=== PATIENT | male | born 1985 | race Caucasian/White ===

== ENCOUNTER 2024-11-23 03:49 | Emergency (ER) | payer BC, SELFPAY ==
[2024-11-23 03:50] VITALS: BMI 30.7
[2024-11-23 03:53] VITALS: BP 126/77
[2024-11-23 03:54] VITALS: BP 126/77
[2024-11-23 04:00] VITALS: BP 126/77
[2024-11-23 04:17] LABS: % Basophils 0.4 % (0-2); % Eosinophils 3.5 % (0-6); % Immature Granulocytes 0.4 % (0-0.5); % Monocytes 5.9 % (1.7-9.3); % Neutrophils 62.8 % (42.2-75.2); Absolute Eosinophils 0.2 10^3/uL (0-0.7); Absolute Lymphocytes 1.2 10^3/uL (1.2-3.4); Absolute Monocytes 0.3 10^3/uL (0.1-0.6); Absolute Neutrophils 2.9 10^3/uL (1.4-6.5); Hemoglobin 14.7 g/dL (13.0-18.0); Mean Corpuscular Hgb 29.2 pg (27.0-31.0); Mean Corpuscular Volume 83.5 fL (80.0-94.0); Mean Platelet Volume 9.6 fL (7.4-10.4); Nucleated Red Blood Cells % 0 % (-); Platelet Count 165 10^3/uL (130-400); Red Blood Cell Count 5.03 10^6/uL (4.70-6.10); Red Cell Dist. Width 12.4 % (11.5-14.5); White Blood Cell Count 4.6 10^3/uL (4.8-10.8)
[2024-11-23 04:41] LABS: ALT (SGPT) 31 U/L (0-50); AST (SGOT) 26 U/L (17-59); Albumin 4.4 g/dl (3.5-5.0); Alkaline Phosphatase 68 U/L (38-126); Blood Urea Nitrogen 22 mg/dl (9-20); Calcium 8.8 mg/dl (8.4-10.2); Carbon Dioxide 27 mmol/L (22-30); Chloride 109 mmol/L (98-107); Estimated Creatinine Clearance 117 ml/min; Glucose 182 mg/dl (70-99); Potassium 3.9 mmol/L (3.5-5.1); Sodium 142 mmol/L (135-145); Total Bilirubin 0.5 mg/dl (0.2-1.3); Total Protein 7.3 g/dl (6.3-8.2); eGFR > 60.00
[2024-11-23 04:51] LABS: Troponin I < 0.012 ng/ml
[2024-11-23 05:00] VITALS: BP 129/81
--- NOTE | 2024-11-23 05:08 | ED.GENMED ---
History of Present Illness
General
Chief Complaint: Dizziness
Source: patient
Exam Limitations: none
Time Seen by Provider: 11/23/24 04:58
Nursing documentation reviewed up to this point in time: agreed with
History of Present Illness
History of Present Illness:
Note:
CHIEF COMPLAINT(S)
Chest burning and dizziness.
HISTORY OF PRESENT ILLNESS
The patient is a 39-year-old male who presents with chest burning over the past one to two weeks. The burning sensation in the chest is intermittent and seems to occur following meals. The patient describes these symptoms as similar to indigestion.
Dlwv-fft-fooncob antacids like Tums and Pepcid have provided slight relief. Tonight, the patient experienced a new sensation described as numbness and dizziness, which woke him from sleep. The dizziness was associated with a feeling of the heart
racing and some shortness of breath. The numbness involved both sides of is bilateral upper and lower extremeties and has been improving. He reports no history of vomiting but sometimes experiences upper abdominal discomfort.
No personal history of heart disease, but there is a family history of heart disease; his grandfather underwent a quadruple bypass surgery in his mid-late 50s. The patient denies any long-distance travel, smoking, or leg swelling. His dizziness
appears to have a positional component. He has never had anything like this before. He denies headache, neck pain, double vision, difficulty ambulating.
PHYSICAL EXAM
General: Patient is well appearing and in no acute distress; non-toxic
Skin: Warm and dry, no rashes or lesions
Head: Normocephalic, atraumatic
Eyes: Sclera non-icteric. EOMs intact.
Cardiac: Regular rate and rhythm, no murmurs
Peripheral Vascular: No lower extremity swelling or edema
Pulm: Normal respiratory effort, no wheezes, rales, or rhonchi
Abdomen: No abdominal tenderness to palpation
Musculoskeletal: No tenderness to palpation of the external chest wall
Neuro: CN II-XII intact, no focal neurologic deficits. Normal gait. Normal finger to nose, heel to hall testing.
Psychiatric: Appropriate mood and affect.
PLAN
- Perform a chest X-ray to rule out other causes of chest pain.
- Conduct a D-dimer blood test to evaluate for pulmonary embolism.
- Consider a CT scan of the head with new onset dizziness
- Administer a gastrointestinal cocktail to evaluate response and consider prescribing omeprazole or pantoprazole if symptoms improve, which may indicate GERD.
DIFFERENTIAL DIAGNOSIS
The Differential Diagnosis includes, in no particular order and is not limited to:
1. Gastroesophageal reflux disease (GERD)
2. Non-cardiac chest pain
3. Anxiety or panic attack
4. Musculoskeletal pain
5. Costochondritis
6. Angina pectoris
7. Pulmonary embolism
8. Peptic ulcer disease
9. Atypical myocardial infarction
10. Esophageal spasm
CHART REVIEW
- no prior ER physician documentation or discharge summaries in [facility] to review
MDM/DISPOSITION
Chest burning/pain: 39 y/o male presents to the ER today with concerns of chest burning for 1-2 weeks. His ECG shows normal sinus rhythm and his troponin is undetectable, d dimer normal, CXR unremarkable. Suspect GERD considering pain worse with
meals, burning quality, improvement with GI cocktail. Prescription for PPI given. PCP follow up. Discussed follow up with cards as well considering family hx.
Dizziness: This symptom is what prompted patient to call EMS. He woke up and started to feel dizzy. Worse with standing. Started to feel paresthesias in his b/l upper and lower extremities. These symptoms have since resolved and currently he is
asymptomatic. His CT of the head is normal. His neurologic exam is nonfocal. Highly doubt CVA/TIA. Doubt cardiac etiology. Did not have chest pain or palpitations during this episode. Suspect BPPV vs anxiety. Stable for outpatient follow up.
Review of Systems
Review of Systems
All Other Systems: ROS reviewed and negative except as documented in HPI and ROS
Phy Exam
Physical Exam
Physical Exam:
see HPI
PATIENT NOT HYPOXIC
100% on RA
Course
Orders/Labs/Results
Orders:
Orders
11/23/24 03:58
Electrocardiogram (*1) Urgent
Reason for Study: Chest Pain
Cardiac Monitoring- Treatment ONCE
EKG- Treatment ONCE
IV Insert/Care/Rem.- Treatment PRN
O2 Therapy [RESP] Urgent
Titrate/Wean O2 to maintain O2 sat greater than (%): 90
Special Instructions: Maintain sats >/=90%
Pulse Ox/spot Check [RESP] Urgent
Quantity: 1
Special Instructions: ON ROOM AIR
11/23/24 04:00
Complete Blood Count/With Diff Urgent
Comprehensive Metabolic Panel Urgent
Troponin I Urgent
11/23/24 05:08
CT Head W/o Iv Contrast Urgent
Comment:
Reason For Exam: dizziness
Mag Hydrox/Al Hydrox/Simeth [Maalox] 30 ml Phenobarb/Hyoscy/Atropine/Scop [] 10 ml PO NOW
CR Chest - 2 Views Urgent
Comment:
Reason For Exam: shortness of breath, chest pain
11/23/24 05:38
D-Dimer Urgent
11/23/24 05:51
Phenobarb/Hyoscy/Atropine/Scop [] 10 ml .ROUTE .STK-MED ONE
11/23/24 05:52
Mag Hydrox/Al Hydrox/Simeth [Maalox] 30 ml .ROUTE .STK-MED ONE
Abnormal Lab Results
11/23/24
04:00
WBC 4.6 L 10^3/uL
(4.8-10.8)
Chloride 109 H mmol/L
(98-107)
BUN 22 H mg/dl
(9-20)
Glucose 182 H mg/dl
(70-99)
11/23/24 04:00
11/23/24 04:00
Vital Signs
Initial and Last Documented VS:
Initial Vital Signs
Pulse Resp BP Pulse Ox
101 18 126/77 97
11/23/24 03:53 11/23/24 03:53 11/23/24 03:53 11/23/24 03:53
Last Documented Vital Signs
Pulse Resp BP Pulse Ox
91 16 121/79 98
11/23/24 07:30 11/23/24 07:30 11/23/24 07:30 11/23/24 07:30
*Critical Care Note
Total Time (30-74mins, 75-104mins- exclusive of procedures): Not Applicable
ED Attending Note
-
Portions of this chart may have been created with voice recognition software.� Occasional wrong word or��sound alike� substitutions may have occurred due to the inherent limitations of voice recognition software.
Discharge Plan
Departure
Patient Disposition: Home (Routine Discharge)
Date of Disposition: 11/23/24
Time of Disposition: 06:57
Patient with high blood pressure during this ER visit?: Yes
Condition: Good
Discharge Problem:
Chest pain
Instructions: Acid reflux and GERD in adults, Chest pain - Discharge instructions, BLOOD PRESSURE
Prescriptions:
New
pantoprazole [Protonix] 20 mg tablet,delayed release (DR/EC)
20 mg PO DAILY 14 Days Qty: 14 0RF
Referrals:
Mario Riggs MD [Active, Cardiology] - Call in 1-3 days for appt
UNKNOWN - PT DOES,NOT KNOW [Family Provider]
Activity Restrictions/Additional Instructions:
Please start taking pantoprazole for 2-week trial. Please take 1 tablet once daily for 2 weeks.
Please follow up with your PCP after.
Please call the attached number to schedule follow up with gastroenterology.
PLEASE RETURN THE EMERGENCY DEPARTMENT SHOULD YOU DEVELOP A RETURN OR ACUTE WORSENING OF YOUR SYMPTOMS, SHORTNESS OF BREATH, DIZZINESS, LIGHTHEADEDNESS, FAINTING SPELLS, JAW PAIN, LEFT ARM PAIN, OR ANY OTHER SIGNS OR SYMPTOMS WORRISOME TO YOU.
Interventions
Interventions:
*Risk Screen - Suicide Last Done: 11/23/24 03:53
*General Assessment Last Done: 11/23/24 03:53
*Neglect/Abuse Screening Last Done: 11/23/24 03:53
*ED- Fall Risk Assessment Last Done: 11/23/24 03:53
*ED COVID-19 Vaccine History Last Done: 11/23/24 03:53
*Nursing Disposition Last Done: 11/23/24 07:30
ED- Neurological Assessment Last Done: 11/23/24 04:05
ED- Cardiac Assessment Last Done: 11/23/24 04:05
ED Swallowing Screen Last Done: 11/23/24 04:07
Discharge Date and Time
Discharge Date/Time: 11/23/24 07:30
Print Language: TELUGU
[2024-11-23] MEDS: MAALOX 30 PO (05:55)
[2024-11-23 06:03] LABS: D-Dimer 0.33 ug/mlFEU (0.00-0.50)
[2024-11-23 07:30] VITALS: BP 121/79
== END 2024-11-23 07:30 | disposition home or self-care (01) ==
LOC: EMR 03:49
PROVIDERS: Physician Assistant; EMERGENCY PHYSICIAN Student in an Organized Health Care Education/Training Program
DX: R07.9 Chest pain, unspecified (principal); R42 Dizziness and giddiness
CPT/HCPCS: 99285; 70450; 71046; 80053; 84484; 85025; 85379; 93005